=== PATIENT | male | born 1985 | race Two or more races ===

== ENCOUNTER 2017-02-24 02:24 | Emergency (ER) | payer OTHER ==
[~2017-02-24] VITALS: Ht 175.3 cm; Wt 90.7 kg
[2017-02-24 02:30] VITALS: BP 148/96
== END 2017-02-24 06:31 | disposition home or self-care (01) ==
LOC: EDBD 02:24 → ER 02:24
DX: S01.111A Laceration without foreign body of right eyelid and periocular area, initial encounter (principal); S02.2XXA Fracture of nasal bones, initial encounter for closed fracture; Y08.89XA Assault by other specified means, initial encounter; Y93.89 Activity, other specified; Y99.8 Other external cause status; Y92.89 Other specified places as the place of occurrence of the external cause
CPT/HCPCS: 12011; 70450; 70486; 99284; C1883

== ENCOUNTER 2020-06-13 23:18 | Emergency (ER) | payer MEDICAID, OTHER ==
[~2020-06-13] VITALS: Ht 175.3 cm; Wt 104.3 kg
[2020-06-13 23:25] VITALS: BP 150/87
[2020-06-14] MEDS ORDERED: FLUORESCEIN SOD 1 MG TEST STRIP LEFTEYE ONE (01:30)
[2020-06-14] MEDS ORDERED: TETRACAINE HCL 0.5% OPTH(EYE) SOLN 4ML LEFTEYE ONE (01:30)
== END 2020-06-14 02:05 | disposition home or self-care (01) ==
LOC: ER 23:18
DX: H10.89 Other conjunctivitis (principal)